=== PATIENT | male | born 1995 | race Caucasian/White ===

== ENCOUNTER 2017-03-05 21:40 | Inpatient (IN) | END 2017-03-09 13:50 | disposition home or self-care (01) | DRG 200 ==

== ENCOUNTER 2018-05-01 16:00 | Emergency (ER) | payer SELFPAY ==
[~2018-05-01] VITALS: Wt 83.8 kg
[~2018-05-01 16:00] MED LIST: ALBU8.5H8 INH; AZIT250T13 PO
[2018-05-01] MEDS ORDERED: IOHEXOL 300MG/ML 150 ML BTL ONE (18:53)
[2018-05-01] MEDS ORDERED: SOD CHLORIDE 0.9% 100 ML ONE (18:53)
[2018-05-01] MEDS ORDERED: NA PHOSPHATE/BIPHOS 133 ML ENEMA PR ONE (21:00)
[2018-05-01] MEDS ORDERED: MINE133E23 PR (22:53)
[2018-05-01] MEDS ORDERED: DOCU-144 PO (22:53)
[2018-05-01] MEDS ORDERED: POLY17PO6 PO (22:53)
--- NOTE | 2018-05-01 22:56 | ERD ---
ER Documentation Chief Complaint Chief Complaint unable to urinate since last PM; diaphoretic/ tachypneic. ROS All systems reviewed and are negative except as per history of present illness. Medications Home Meds Active Scripts Polyethylene Glycol* (Miralax*) 17 Gm Powd.pack, 8.5 GM PO DAILY PRN for constipation, #30 PACKET Prov:DURGA GILBERT 05/01/18 Docusate Sodium* (Colace*) 100 Mg Capsule, 100 MG PO BID PRN for constipation, #30 CAP Prov:DURGA GILBERT DO 05/01/18 Mineral Oil* (Fleet* Mineral Oil Enema) 133 Ml Oil, 133 ML [place] NEEDED PRN for constipation for 7 Days, #7 ENEMA Prov:DURGA GILBERT 05/01/18 Albuterol Sulfate* (Proair HFA*) 8.5 Gm Hfa.aer.ad, 2 PUFF INH Q4H PRN for WHEEZING AND SOB, #1 INHALER Prov:DHAVAL CHING MD 03/09/17 Azithromycin* (Azithromycin*) 250 Mg Tablet, 250 MG PO DAILY for 2 Days, #2 TAB Prov:DHAVAL CHING MD 03/09/17 Allergies Allergies: Coded Allergies: No Known Allergy (Unverified , 03/05/17) PMhx/Soc History of Surgery: No Anesthesia Reaction: No Hx Neurological Disorder: No Hx Respiratory Disorders: Yes (Bronchitis) Hx Cardiac Disorders: No Hx Psychiatric Problems: No Hx Miscellaneous Medical Probl: No Hx Alcohol Use: Yes Hx Substance Use: No Hx Tobacco Use: No Smoking Status: Never smoker Physical Exam Vitals Vital Signs Date Temp Pulse Resp B/P (MAP) Pulse Ox O2 O2 Flow FiO2 Time Delivery Rate 05/01/18 98.4 82 16 147/87 100 16:31 (107) Physical Exam Const: No acute distress Head: Atraumatic Eyes: Normal Conjunctiva ENT: Normal External Ears, Nose and Mouth. Neck: Full range of motion. No meningismus. Resp: Clear to auscultation bilaterally Cardio: Regular rate and rhythm, no murmurs Abd: Soft, non tender, non distended. Normal bowel sounds Skin: No petechiae or rashes Back: No midline or flank tenderness Ext: No cyanosis, or edema Neur: Awake and alert Psych: Normal Mood and Affect Result Diagram: 05/01/18174305/01/181743 Results 24 hrs Laboratory Tests Test 05/01/18 17:44 White Blood Count 15.0 10^3/ul Red Blood Count 5.40 10^6/ul Hemoglobin 15.4 g/dl Hematocrit 43.4 % Mean Corpuscular Volume 80.4 fl Mean Corpuscular Hemoglobin 28.5 pg Mean Corpuscular Hemoglobin Concent 35.5 g/dl Red Cell Distribution Width 13.0 % Platelet Count 243 10^3/UL Mean Platelet Volume 10.0 fl Immature Granulocytes % 0.500 % Neutrophils % 83.5 % Lymphocytes % 8.3 % Monocytes % 6.7 % Eosinophils % 0.7 % Basophils % 0.3 % Nucleated Red Blood Cells % 0.0 /100WBC Immature Granulocytes # 0.070 10^3/ul Neutrophils # 12.5 10^3/ul Lymphocytes # 1.3 10^3/ul Monocytes # 1.0 10^3/ul Eosinophils # 0.1 10^3/ul Basophils # 0.1 10^3/ul Nucleated Red Blood Cells # 0.0 10^3/ul Urine Color YELLOW Urine Clarity CLEAR Urine pH 6.0 Urine Specific [place] 1.010 Urine Ketones NEGATIVE mg/dL Urine Nitrite NEGATIVE mg/dL Urine Bilirubin NEGATIVE mg/dL Urine Urobilinogen NEGATIVE mg/dL Urine Leukocyte Esterase NEGATIVE Trey/ul Urine Hemoglobin NEGATIVE mg/dL Urine Glucose NEGATIVE mg/dL Urine Total Protein NEGATIVE mg/dl Sodium Level 139 mmol/L Potassium Level 4.0 mmol/L Chloride Level 102 mmol/L Carbon Dioxide Level 31 mmol/L Anion Gap 6 Blood Urea Nitrogen 14 mg/dl Creatinine 0.78 mg/dl Est Glomerular Filtrat Rate mL/min > 60 mL/min Glucose Level 101 mg/dl Calcium Level 10.3 mg/dl Total Bilirubin 0.7 mg/dl Direct Bilirubin 0.00 mg/dl Indirect Bilirubin 0.7 mg/dl Aspartate Amino Transf (AST/SGOT) 36 IU/L Alanine Aminotransferase (ALT/SGPT) 30 IU/L Alkaline Phosphatase 108 IU/L Total Protein 8.2 g/dl Albumin 4.8 g/dl Globulin 3.40 g/dl Albumin/Globulin Ratio 1.41 Current Medications Medications Dose Sig/Dayron Start Time Status Last (Trade) Ordered Route PRN Stop Time Admin Dose Reason Admin IV Flush 10 ml STK-MED 05/01/18 DC 05/01/18 (NS 10 ml) ONCE .ROUTE 18:53 19:08 05/01/18 18:54 Sodium 100 ml @ ud STK-MED 05/01/18 DC 05/01/18 Chloride ONCE .ROUTE 18:53 19:08 05/01/18 18:54 Iohexol 150 ml STK-MED 05/01/18 DC 05/01/18 (Omnipaque ONCE .ROUTE 18:53 19:08 300mg/ ml) 05/01/18 18:54 Sodium 133 ml ONCE ONCE 05/01/18 DC 05/01/18 Biphosphate/ [place] 21:00 21:21 Sodium 05/01/18 21:01 Phosphate (Fleet Enema) Departure Diagnosis: Primary Impression: Retention of urine Additional Impression: Constipation Constipation type: unspecified constipation type Qualified Codes: K59.00 - Constipation, unspecified Condition: Fair Patient Instructions: Constipation (Adult), Urinary Retention, Male Referrals: [facility] YOU HAVE RECEIVED A MEDICAL SCREENING EXAM AND THE RESULTS INDICATE THAT YOU DO NOT HAVE A CONDITION THAT REQUIRES URGENT TREATMENT IN THE EMERGENCY DEPARTMENT. FURTHER EVALUATION AND TREATMENT OF YOUR CONDITION CAN WAIT UNTIL YOU ARE SEEN IN YOUR DOCTORS OFFICE WITHIN THE NEXT 1-2 DAYS. IT IS YOUR RESPONSIBILITY TO MAKE AN APPOINTMENT FOR FOLOW-UP CARE. IF YOU HAVE A PRIMARY DOCTOR --you should call your primary doctor and schedule an appointment IF YOU DO NOT HAVE A PRIMARY DOCTOR YOU CAN CALL OUR PHYSICIAN REFERRAL HOTLINE AT IF YOU CAN NOT AFFORD TO SEE A PHYSICIAN YOU CAN CHOSE FROM THE FOLLOWING [facility] [address] [facility] [facility] [address] [facility] [facility] [address] [facility] [facility] [address] [facility]. [facility] [address] [facility]. [facility]. [address] Additional Instructions: Call your primary care doctor TOMORROW for an appointment during the next 1-2 days.See the doctor sooner or return here if your condition worsens before your appointment time. needs follow up with gastroenterology DURGA GILBERT DO May 01, 2018 22:56
[2018-05-01 23:06] VITALS: BP 113/62; PULSE 86; RESP 18
== END 2018-05-01 23:07 | disposition home or self-care (01) ==
LOC: FTE 16:00
DX: R33.9 Retention of urine, unspecified (principal); K59.00 Constipation, unspecified
CPT/HCPCS: 36415; 74177; 80053; 81003; 85025; 99285; P9612; Q9967